=== PATIENT | female | born 1960 | race African-American/Black ===

== ENCOUNTER 2021-01-21 15:51 | Emergency (ER) | payer OTHER ==
[~2021-01-21] VITALS: Ht 160 cm; Wt 83.9 kg
[2021-01-21] MEDS ORDERED: LIPITOR 20 MG T20 M1 PO (17:24)
[2021-01-21] MEDS ORDERED: METFORMIN HCL500 M3 PO (17:24)
[2021-01-21 18:19] LABS: URINE BILIRUBIN NEGATIVE (Negative); URINE BLOOD 3+ (Negative); URINE CLARITY CLOUDY; URINE COLOR YELLOW; URINE GLUCOSE-RANDOM* 3+ (Negative); URINE KETONES NEGATIVE (Negative); URINE LEUKOCYTES-REFLEX NEGATIVE (Negative); URINE NITRITE-REFLEX NEGATIVE (Negative); URINE PROTEIN (DIPSTICK) 2+ (Negative); URINE SPECIFIC GRAVITY 1.025 (1.005-1.035); URINE UROBILINOGEN 0.2 E.U./dl (0.2-1.0)
[2021-01-21 18:28] LABS: BACTERIA-REFLEX 1-9 Few /HPF (None Seen); CASTS None Seen /LPF (None Seen); CRYSTALS None Seen /LPF (None Seen); SQUAMOUS 0-3 Few /LPF (0-3); URINE WBC-REFLEX 6-15 Few /HPF (0-5)
[2021-01-21 18:39] LABS: ABSOLUTE NEUTROPHILS 3.5 thou/uL (1.4-8.2); BASOPHILS 0.5 % (0.0-2.0); EOSINOPHILS 3.2 % (0.0-3.0); HEMATOCRIT 36.8 % (37.0-47.0); HEMOGLOBIN 12.1 gm/dL (12.0-15.0); LYMPHOCYTES 33.7 % (24.0-44.0); MCH 31.5 pg (26.0-34.0); MCHC 32.9 g/dL (28.0-37.0); MCV 95.7 fL (80.0-100.0); MONOCYTES 5.9 % (1.0-8.0); PLATELET COUNT 262 thou/uL (150-400); POLYS 56.7 % (36.0-66.0); RBC 3.85 mil/uL (4.20-5.00); RDW 15.3 % (10.5-14.5); WBC 6.1 thou/uL (4.0-11.0)
[2021-01-21 18:47] LABS: ANION GAP 10 mmol/L (7-16); BUN 12 mg/dL (7-18); CHLORIDE 99 mmol/L (98-107); CO2 27 mmol/L (21-32); CREATININE 0.9 mg/dL (0.6-1.0); GLUCOSE 305 mg/dL (74-106); POTASSIUM 3.8 mmol/L (3.5-5.1); SODIUM 136 mmol/L (136-145)
[2021-01-21 18:57] LABS: ALBUMIN 3.6 g/dL (3.4-5.0); SGOT 13 U/L (15-37); SGPT 37 U/L (14-59); TOTAL BILIRUBIN 0.7 mg/dL (0.2-1.0); TOTAL PROTEIN 7.9 g/dL (6.4-8.2); TROPONIN-I <0.06 ng/mL (<0.06)
[2021-01-21] MEDS ORDERED: BACTRIM DS TAB1 EACH PO (19:41)
[2021-01-21] MEDS ORDERED: ZOFRAN ODT4 MG PO (20:28)
[2021-01-21 20:30] VITALS: BP 139/75
--- NOTE | 2021-01-22 07:13 | EKG ---
[place] [address] [facility] [place] [address] ELECTROCARDIOGRAM REPORT Name: ALEXANDRO MIX Room #: [facility] Estephanie#: [id number] Admission: 01/21/21 Attend Phys: Discharge: 01/21/21 Date of : 56 Report #: [id number] [facility] ED Test Date: 2021-01-21 Test Time: 18:32:35 Pat Name: ALEXANDRO MIX Department: Room: Gender: F Medical Staff Credentialing Coordinator: : 1960 Requested By: Eliezer Goldman Order Number: [id number] MD: Talib Malone Measurements Intervals [place] Rate: 85 P: 40 AK: 158 QRS: -28 QRSD: 92 T: 8 QT: 351 QTc: 418 Interpretive Statements Sinus rhythm Left ventricular hypertrophy No previous ECG available for comparison Electronically Signed On 01-22-2021 7:13:45 CDT by Talib Malone [email or web address] <ELECTRONICALLY SIGNED> By: Talib Malone MD, [facility] 01/22/21 0713 [id number] Talib Malone MD, FACC /EPI
== END 2021-01-21 20:30 | disposition home or self-care (01) ==
LOC: ER 15:51
PROVIDERS: Emergency Medicine
DX: N39.0 Urinary tract infection, site not specified (principal); Z87.442 Personal history of urinary calculi